=== PATIENT | female | born 1995 | race Caucasian/White ===

== ENCOUNTER → 2023-05-16 09:13 | Outpatient (BNVA) | payer MEDICAID, SELFPAY | PROVIDERS: PCP Nurse Practitioner Family; Visit Provider Internal Medicine Rheumatology | DX: M32.14 Glomerular disease in systemic lupus erythematosus (principal); R06.2 Wheezing | CPT/HCPCS: 99202 ==

== ENCOUNTER 2023-06-27 08:54 | Outpatient (AMB) | payer MEDICAID, SELFPAY ==
[2023-06-27 09:13] VITALS: BP 116/74; PULSE 73; TEMP 36.5; O2SAT 97; BMI 47.5
--- NOTE | 2023-06-27 09:13 | MHC.OFFVIS ---
Intake Vital Signs 06/27/23 09:13 Height 5 ft 6 in Weight 294 lb 1.546 oz BMI 47.5 BP 116/74 Pulse 73 Pulse Source Pulse Oximeter Temp 97.7 F Temp Source Skin Pulse Oximetry (%) 97 Intake Visit Reasons: sle - Confirmed Intake Note: Pt seen today for SLE follow up. 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 Dr Matthews discontinued mycophenalate tablet and will start cytoxan therapy infusion 07/04/23 Batch Dumper Required: No Accompanied by: Self / Same As Patient Allergies minocycline Adverse Reaction (Unknown, Verified 06/27/23 09:23) Hives Medication List - Last Reconciled 06/27/23 by Silvano Kruse MD amlodipine 10 mg PO DAILY fluticasone propionate 110 mcg/actuation (Flovent HFA) 2 puffs inhalation BID hydroxychloroquine 200 mg PO BID labetalol 400 mg PO DAILY lorazepam 1 mg PO BID PRN PNV,calcium 96-fkkc-qpkff acid 27 mg iron- 1 mg ( Vitamins Plus Low Iron) 1 tab PO DAILY prednisone 10 mg PO DAILY Ventolin HFA 90 mcg/actuation (albuterol sulfate) 2 puffs PO QID NS HPI HPI Comments History of Present Illness Details The patient returns for evaluation of her SLE. At her last visit she was having wheezing, coughing and shortness of breath consistent with asthma. She was on prednisone and with the use of inhalers she says her breathing has improved. There is no more shortness of breath or chest pain. She also had a kidney biopsy done on May 04. It shows membranous nephropathy of lupus, class V. There was an estimate of 25% glomerulosclerosis. She has some pain in the lateral aspect of the left foot underneath the 5th MTP. Otherwise the joints have not been uncomfortable recently. She is down to 10 mg daily on the prednisone and remains on 200 mg b.i.d. hydroxychloroquine. She remains on mycophenolate but tells me on July 03 she is going to receive IV Cytoxan. It sounds like she is getting that every 2-3 weeks for about 6 doses for her lupus nephritis. She was told to stop the mycophenolate when the IV Cytoxan starts. There have been no oral ulcers or inflammatory skin rashes. She currently does not have an official place to live. She and her daughter a stay with her grandmother but the grandmother is in senior housing and is not supposed to be housing the patient. The patient has pursued social help and is on a wait list to get a better apartment. [facility] Medical History (Updated 06/27/23 @ 13:37 by Silvano Kruse MD) Chronic kidney disease Hypertension Hypervolemia SLE glomerulonephritis syndrome Surgical History History of surgery Hx of appendectomy Hx of gastric bypass Status post biopsy of kidney Family History Mother Diabetes Maternal Grandmother Heart disease Hypertension Kidney disease Social History Alcohol intake: current Alcohol intake frequency: does not drink Patient Tobacco Use Status: Former Tobacco user Review of Systems Const Details: Negative for appetite change, weight change, fever, chills, malaise and fatigue Eyes Details: Negative for vision change, dry eyes,headaches and dizziness ENT Details: Negative for hearing change, tinnitus, oral ulcer, nose bleeds and oral dryness. Card Details: She has bilateral ankle edema, more prominent on the right. Negative chest pain, palpitations and syncope Resp Details: Negative for SOB, cough and wheezing GI Details: Negative indigestion/heartburn, nausea, abdominal pain, bowel changes, diarrhea, constipation and bloody stool. Details: Negative for dysuria, hematuria, nocturia, decreased force/flow and genital discharge Skin/Breast Details: Negative for itching, rash, hives, Raynaud's symptoms, sun sensitivity, and skin cancer Neuro Details: Negative for epilepsy, palsy, stroke, changes in speech, tingling and weakness Psych Details: Negative for anxiety, depression and stress Endo Details: Negative for polyuria and polydypsia [place]ism[place]/Lymph Details: Negative for excessive bruising or bleeding. Physical Exam Vital Signs: Last Vital Signs Temp 97.7 F 06/27/23 09:13 Pulse 73 06/27/23 09:13 BP 116/74 06/27/23 09:13 Pulse Ox 97 06/27/23 09:13 BMI result Body Mass Index 47.5 APPEARANCE: Patient in no acute distress EYES no redness, pupils equal and reactive to light, eyelids normal EARS:? External ear normal, canal clear and tympanic membrane normal. NOSE/SINUS:? Airflow through both nares, no nasal discharge, no bleeding THROAT:? There are no oral lesions evident..? Oral mucosa moist, no thrush NECK:? There may be some thyromegaly.? No masses, no adenopathy, trachea midline. HEART:? Regulrar rhythm, S1-S2 heard, no murmurs, rubs or gallops. LUNG:? Clear to percussion; clear to auscultation. ABD:? Normal bowel sounds, no organomegaly, masses or tenderness. EXTREMITIES:? Trace ankle and pedal edema on the left and trace to 1+ ankle and pedal edema on the right. No evidence of Raynaud's findings today. Lateral to the 5th MTP of the left foot is a callus. This is tender and seems to reproduce her pain in her foot when I apply pressure. There is no adjacent signs of redness or induration to suggest infection. No breaks in the skin. No objective findings of Raynaud's disease in the hands. NEURO:? Oriented and alert x3.? No focal weakness.? Reflexes symmetric.? Gait normal. SKIN:? Some scarring punctate lesions below the chin.? None look red or tender.? She has the left 5th toe corn as noted above.? JOINT EXAM:? Some discomfort with range of motion in the lower back.? Peripheral joints have no swelling or tenderness. at the occiput, trapezius, second rib, lateral epicondyle, knees, greater trochanter and gluteal area bilaterally. ? Results Reviewed Results Reviewed: 06/13/2023 lab work from [facility]: Creatinine 1.0, BUN 21, albumin 2.9, anti DNA greater than 300, urine protein creatinine ratio 245.4 Assessment & Plan Assessment & Plan (1) [place] of foot: Code(s): L84 - Corns and callosities (2) longterm current use of immunosuppressive drug: Code(s): Z79.899 - Other correction (current) drug therapy (3) SLE glomerulonephritis syndrome: Comment: April 2023 kidney biopsy: Membranous nephritis from lupus, class V. 25%glomerulosclerosis. Treatment to be changed from mycophenolate to IV Cytoxan in June 2023 Code(s): M32.14 - Glomerular disease in systemic lupus erythematosus Plan The peripheral manifestations of her SLE seems to have subsided. She does not seem to have any findings today of pleuritis, pericarditis, synovitis, or inflammatory skin rash. She remains with peripheral edema likely due to the significant proteinuria from her renal lesion from lupus. I would concur with the plan to start her on IV Cytoxan. I reviewed with her that the previous treatment with mycophenolate was not effective at preventing the development of her kidney disease. We reviewed some of the side effects of cyclophosphamide including some likely had ovarian dysfunction which may interfere with fertility. She says she was not aware of that potential complication. She may need to talk to the doctor about that in the future. I told her however that she did not have too many choices left having failed the mycophenolate and being faced with a relatively severe renal lesion. For now she will stay with the 10 mg daily prednisone. 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 We will aim for follow-up in about 2 months. Orders: Referrals Podiatry Referral L84 - Corns and callosities, Z79.899 - Other correction (current) drug therapy Medications: New prednisone 10 mg PO DAILY 30 tabs 1RF M32.14 - Glomerular disease in systemic lupus erythematosus Coding Level of Care Code Est Pt Level 3 (63814) Diagnoses [place] of foot L84 longterm current use of immunosuppressive drug Z79.899 SLE glomerulonephritis syndrome M32.14
== END 2023-06-27 10:32 | disposition home or self-care (01) ==
PROVIDERS: PCP Physician Assistant; Visit Provider Internal Medicine Rheumatology
DX: L84 Corns and callosities (principal); Z79.899 Other long term (current) drug therapy; M32.14 Glomerular disease in systemic lupus erythematosus
CPT/HCPCS: 99213

== ENCOUNTER → 2023-06-27 08:54 | Outpatient (BNVA) | payer MEDICAID, SELFPAY | PROVIDERS: PCP Nurse Practitioner Family; Visit Provider Internal Medicine Rheumatology | DX: M32.14 Glomerular disease in systemic lupus erythematosus (principal); L84 Corns and callosities; Z98.84 Bariatric surgery status; Z79.899 Other long term (current) drug therapy | CPT/HCPCS: 99212 ==

== ENCOUNTER 2023-07-19 09:39 | Outpatient (AMB) | payer MEDICAID, SELFPAY ==
[2023-07-19 09:48] VITALS: BP 126/78; PULSE 69; O2SAT 98; BMI 49.6
--- NOTE | 2023-07-19 09:48 | MHC.OFFVIS ---
Intake Vital Signs 07/19/23 09:48 Height 5 ft 6 in Weight 307 lb 8.717 oz BMI 49.6 BP 126/78 Blood Pressure Location Lt brachial Position Sitting Pulse 69 Pulse Source Pulse Oximeter Pulse Oximetry (%) 98 Oxygen Delivery Method Room Air Intake Visit Reasons: wheezing Allergies minocycline Adverse Reaction (Unknown, Verified 07/19/23 09:52) Hives HPI wheezing HPI Details 27-year-old lady, nonsmoker, with underlying lupus including lupus nephritis now on hydroxychloroquine, cyclophosphamide, and prednisone 10 mg daily, previously on mycophenolate. Patient with recent history of left-sided pleural effusion requiring drainage at [facility] patient has been prescribed diuretics, but currently she is not taking any. Also, unclear if patient has underlying history of deep venous thrombosis and/or pulmonary emboli, records have been requested. She does complain of intermittent wheezing, previously on inhaled corticosteroid, recently stopped by her channel opener. She denies family history of lung disease. [facility] Medical History (Updated 07/19/23 @ 10:36 by Pranav Zepeda MD) Chronic kidney disease Hypertension Hypervolemia SLE glomerulonephritis syndrome Surgical History History of surgery Hx of appendectomy Hx of gastric bypass Status post biopsy of kidney Family History Mother Diabetes Maternal Grandmother Heart disease Hypertension Kidney disease Social History Alcohol intake: current Alcohol intake frequency: does not drink Patient Tobacco Use Status: Former Tobacco user Review of Systems Const Denies daytime sleepiness, Denies excessive sweating, Denies fatigue, Denies fever(s), Denies lethargy, Denies malaise, Denies night sweats, Denies snoring and Denies weight loss Eyes Denies blurry vision and Denies itchy eyes ENT Denies nasal congestion, Denies post nasal drip, Denies sinus pain, Denies sinus pressure and Denies other ( Thrush) Card Denies chest pain, Reports pedal edema, Denies dyspnea, Reports dyspnea on exertion, Denies orthopnea and Denies paroxysmal nocturnal dyspnea Resp Denies cough, Denies hemoptysis, Denies excessive phlegm production, Denies dyspnea, Reports dyspnea on exertion, Denies snoring and Denies wheezing GI Denies abdominal pain and Denies heartburn Musc Denies myalgias, Denies arthralgias and Denies joint swelling Skin/Breast Denies rash Neuro Denies memory loss and Denies seizure-like activity Psych Denies abnormal sleep pattern, Denies anxiety and Denies memory loss Endo Denies excessive sweating, Denies fatigue and Denies heat intolerance Bismark/Lymph Denies easy bruising Aller/Immun Denies itchy eyes, Denies seasonal rhinorrhea and Denies wheezing Physical Exam Vital Signs: Last Vital Signs Pulse 69 07/19/23 09:48 BP 126/78 07/19/23 09:48 Pulse Ox 98 07/19/23 09:48 Oxygen Delivery Method Room Air 07/19/23 09:48 BMI result Body Mass Index 49.6 Const General: no acute distress and alert Nutritional Appearance: obese Orientation/consciousness: Other orientation findings ( oriented) HEENT Head: Yes atraumatic Eyes General: appearance normal, both eyes and all related structures Sclerae: sclerae normal EOM: EOMs intact bilaterally Neck Neck: Yes supple Lymphatic: no lymphadenopathy noted Resp Effort & Inspection: normal respiratory effort and no use of accessory muscles Auscultation: clear to auscultation bilaterally Cardio Rate: regular rate Rhythm: regular rhythm Heart sounds: no gallops, no murmurs and no rubs Skin General skin exam: other ( warm) Extrem General: No clubbing, No cyanosis and Yes edema (1+ bilateral) Assessment & Plan Assessment & Plan (1) SLE (systemic lupus erythematosus related syndrome): Code(s): M32.9 - Systemic lupus erythematosus, unspecified Plan: Lupus with lupus nephritis currently on cyclophosphamide, Plaquenil, and prednisone 10 mg daily. Appears to have a component of fluid retention with possible pulmonary edema/effusions. Will obtain pulmonary function test for further evaluation. (2) Pleural effusion: Code(s): J90 - Pleural effusion, not elsewhere classified (3) ILD (interstitial lung disease): Code(s): J84.9 - Interstitial pulmonary disease, unspecified Plan: Likely SLE related ILD. Will obtain CT chest for further evaluation. Orders: Orders CT chest wo IV con Today J84.9 - Interstitial pulmonary disease, unspecified Coding Level of Care Code New Pt Level 4 (31812) Diagnoses SLE (systemic lupus erythematosus related syndrome) M32.9 Pleural effusion J90 ILD (interstitial lung disease) J84.9
== END 2023-07-19 10:10 | disposition home or self-care (01) ==
PROVIDERS: PCP Physician Assistant; Visit Provider Internal Medicine Pulmonary Disease
DX: M32.9 Systemic lupus erythematosus, unspecified (principal); J90 Pleural effusion, not elsewhere classified; J84.9 Interstitial pulmonary disease, unspecified
CPT/HCPCS: 99204

== ENCOUNTER → 2023-07-19 09:39 | Outpatient (BNVA) | payer MEDICAID, SELFPAY | PROVIDERS: PCP Physician Assistant; Visit Provider Internal Medicine Pulmonary Disease | DX: M32.9 Systemic lupus erythematosus, unspecified (principal); J90 Pleural effusion, not elsewhere classified; J84.9 Interstitial pulmonary disease, unspecified | CPT/HCPCS: 99202 ==

== ENCOUNTER 2023-11-28 09:11 | Outpatient (AMB) | payer MEDICAID, SELFPAY ==
[2023-11-28 09:38] VITALS: BP 140/88; PULSE 68; TEMP 36.6; O2SAT 98; BMI 48.5
--- NOTE | 2023-11-28 09:38 | MHC.OFFVIS ---
Intake Vital Signs 11/28/23 09:38 Height 5 ft 6 in Weight 300 lb 4.313 oz BMI 48.5 BP 140/88 H Blood Pressure Location Rt brachial Position Sitting Pulse 68 Pulse Source Pulse Oximeter Temp 97.9 F Temp Source Skin Pulse Oximetry (%) 98 Intake Visit Reasons: SLE Intake Note: Pt presents today for SLE follow up, last seen by Dr Kruse in June 2023. She reports she was seen at [facility] and [facility] in the last 2 week for difficultly breathing. C/o excessive muscle pain and prednsione is not helping. She is wondering about alternatives, she looked up Benlysta.. she states her joint pain is worse with bad weather. Senior Payroll Administrator Required: No Accompanied by: Self / Same As Patient Allergies minocycline Adverse Reaction (Unknown, Verified 11/28/23 09:46) Hives Bactrim Allergy (Severe, Uncoded 11/28/23 09:46) Shortness of Breath Medication List - Last Reconciled 11/28/23 by Bradly Valenzuela MD amlodipine 10 mg PO DAILY hydroxychloroquine 200 mg PO BID labetalol 400 mg PO DAILY lorazepam 1 mg PO BID PRN mycophenolate mofetil 500 mg PO BID mycophenolate mofetil 500 mg PO BID PNV,calcium 29-iojj-ktzkc acid 27 mg iron- 1 mg ( Vitamins Plus Low Iron) 1 tab PO DAILY prednisone 10 mg PO DAILY HPI HPI Comments History of Present Illness Details 28-year-old female with SLE returns for follow-up. She completed IV Cytoxan treatment back in August. According to patient it was a an every other week treatment, 6 infusions in total. (likely Euro Lupus protocol) then switched back to her mycophenolate mofetil. About 10 days ago she presented to the hospital with cough, shortness of breath, difficulty breathing. She was found to have RSV pneumonia and discharged home. She states that her symptoms are much improved now. She is also on hydroxychloroquine. Currently her main complaint is diffuse joint pain, and stiffness including her wrists, knuckles, knees, ankles associated with 2 hours of morning stiffness, improved with lying in a home warm bath. He takes prednisone 10 mg daily and Tylenol 500 mg 3 times a day without much improvement. She has also noticed some ulcers on the inside of her mouth. No new rashes Most recent history by Dr. Kruse 06/2023: The patient returns for evaluation of her SLE. At her last visit she was having wheezing, coughing and shortness of breath consistent with asthma. She was on prednisone and with the use of inhalers she says her breathing has improved. There is no more shortness of breath or chest pain. She also had a kidney biopsy done on May 04. It shows membranous nephropathy of lupus, class V. There was an estimate of 25% glomerulosclerosis. She has some pain in the lateral aspect of the left foot underneath the 5th MTP. Otherwise the joints have not been uncomfortable recently. She is down to 10 mg daily on the prednisone and remains on 200 mg b.i.d. hydroxychloroquine. She remains on mycophenolate but tells me on July 03 she is going to receive IV Cytoxan. It sounds like she is getting that every 2-3 weeks for about 6 doses for her lupus nephritis. She was told to stop the mycophenolate when the IV Cytoxan starts. There have been no oral ulcers or inflammatory skin rashes. She currently does not have an official place to live. She and her daughter a stay with her grandmother but the grandmother is in senior housing and is not supposed to be housing the patient. The patient has pursued social help and is on a wait list to get a better apartment. [facility] Medical History Hypervolemia Hypertension SLE glomerulonephritis syndrome Chronic kidney disease Surgical History Status post biopsy of kidney History of surgery Hx of gastric bypass Hx of appendectomy Family History Mother Diabetes Maternal Grandmother Heart disease Hypertension Kidney disease Social History Alcohol intake: current Alcohol intake frequency: does not drink Patient Tobacco Use Status: Former Tobacco user Substance Use Type: Marijuana Review of Systems [facility] Reports back pain, Reports arthralgias and Reports stiffness Skin/Breast Denies rash Physical Exam Vital Signs: Last Vital Signs Temp 97.9 F 11/28/23 09:38 Pulse 68 11/28/23 09:38 BP 140/88 H 11/28/23 09:38 Pulse Ox 98 11/28/23 09:38 BMI result Body Mass Index 48.5 Const General: cooperative, healthy appearing and comfortable Nutritional Appearance: obese morbidly obese Orientation/consciousness: patient oriented x3 Limitations: no limitations HEENT Head: Yes normocephalic and Yes atraumatic Mouth: moist mucous membranes Resp Effort & Inspection: normal respiratory effort and able to speak in complete sentences Auscultation: clear to auscultation bilaterally Cardio Rate: regular rate Rhythm: regular rhythm GI Palpation (GI): Soft to palpation and nontender Skin Other: Old hyperpigmented scars on face Neuro General: patient oriented x3 Extrem Other: Bilateral wrist tenderness and pain with flexion and extension Bilateral diffuse MCP, PIP and PIP tenderness Bilateral elbow pain with flexion and extension Bilateral knee pain with flexion and extension Bilateral ankle tenderness Results Reviewed Results Reviewed: 06/13/2023 lab work from [facility]: Creatinine 1.0, BUN 21, albumin 2.9, anti DNA greater than 300, urine protein creatinine ratio 245.4 Labs 04/06/2023 C3 94 (90-180) C4 18 (10-40) DsDNA 263 (0-9) Creatinine 1.4 Proteinuria 0.86 as compared to 6.0 in August Assessment & Plan Assessment & Plan (1) SLE glomerulonephritis syndrome: Comment: Arthralgias, skin rashes, pleural effusions, membraneous nephritis, +++DsDNA +++Sm April 2023 kidney biopsy: Membranous nephritis from lupus, class V. 25%glomerulosclerosis. Treatment changed from mycophenolate to IV Cytoxan in June 2023 Code(s): M32.14 - Glomerular disease in systemic lupus erythematosus Plan: This is a 28-year-old female with SLE complicated by class V glomerulonephritis who presents for follow-up. This is her 1st visit with me. She completed IV Cytoxan treatment back in August of 2023, managed by [employer] (Dr. Yolanda Guaman) likely Euro lupus protocol. She is currently back on her mycophenolate 500 mg Twice daily. Labs showed improved proteinuria bought a mild bump in creatinine.. DsDNA improved. Upon evaluation today it looks like her main lupus manifestation is inflammatory arthritis. Check SLE disease activity labs. Increase prednisone to 20 mg daily. Follow-up in 3 weeks. 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 Will consider adding other DMARDs such as Benlysta (2) Long-term use of hydroxychloroquine: Code(s): Z79.899 - Other residential (current) drug therapy Plan: Referred to Ophthalmology Plan I spent 47 minutes reviewing patient's chart, evaluating patient, ordering diagnostic workup, counseling patient and documenting in the chart Orders: Orders Protein Creatinine Ratio, Ur Today M32.14 - Glomerular disease in systemic lupus erythematosus, M32.9 - Systemic lupus erythematosus, unspecified C Reactive Protein Today M32.14 - Glomerular disease in systemic lupus erythematosus, M32.9 - Systemic lupus erythematosus, unspecified Comprehensive Met. Panel Today M32.14 - Glomerular disease in systemic lupus erythematosus, M32.9 - Systemic lupus erythematosus, unspecified Anti Extractable Nuclear Ag Today M32.14 - Glomerular disease in systemic lupus erythematosus, M32.9 - Systemic lupus erythematosus, unspecified Anti DNA DS Antibody Today M32.14 - Glomerular disease in systemic lupus erythematosus, M32.9 - Systemic lupus erythematosus, unspecified Complement C3 Today M32.14 - Glomerular disease in systemic lupus erythematosus, M32.9 - Systemic lupus erythematosus, unspecified Complement C4 Today M32.14 - Glomerular disease in systemic lupus erythematosus, M32.9 - Systemic lupus erythematosus, unspecified Erythrocyte Sedimentation Rate Today M32.14 - Glomerular disease in systemic lupus erythematosus, M32.9 - Systemic lupus erythematosus, unspecified UA w Microscopic Today M32.14 - Glomerular disease in systemic lupus erythematosus, M32.9 - Systemic lupus erythematosus, unspecified Sjogren's Antibodies Today M32.14 - Glomerular disease in systemic lupus erythematosus, M32.9 - Systemic lupus erythematosus, unspecified Lupus Anticoagulant Panel Today M32.14 - Glomerular disease in systemic lupus erythematosus, M32.9 - Systemic lupus erythematosus, unspecified Complete Blood Count Auto Diff Today M32.14 - Glomerular disease in systemic lupus erythematosus, M32.9 - Systemic lupus erythematosus, unspecified Hepatitis A,B,C Profile Today Z11.59 - Encounter for screening for other viral diseases T Spot TB Today Z11.7 - Encounter for testing for latent tuberculosis infection Beta-2 Glycoprotein Antibody Today R76.0 - Raised antibody titer Cardiolipin Antibodies Today R76.0 - Raised antibody titer Referrals Ophthalmology Referral Z79.899 - Other salvage determiner (current) drug therapy Medications: New PNV,calcium 45-mrfv-zzouk acid 27 mg iron- 1 mg ( Vitamins Plus Low Iron) 1 tab PO DAILY 90 tabs 1RF Changed From prednisone 10 mg PO DAILY 30 tabs 1RF M32.14 - Glomerular disease in systemic lupus erythematosus To prednisone 20 mg (2 x 10 mg) PO DAILY 42 tabs 0RF M32.14 - Glomerular disease in systemic lupus erythematosus Coding Level of Care Code Est Pt Level 5 (04904) Diagnoses SLE glomerulonephritis syndrome M32.14 Long-term use of hydroxychloroquine Z79.899
== END 2023-11-28 10:22 | disposition home or self-care (01) ==
PROVIDERS: PCP Physician Assistant; Referring Provider Physician Assistant; Visit Provider Student in an Organized Health Care Education/Training Program
DX: M32.14 Glomerular disease in systemic lupus erythematosus (principal); Z79.899 Other long term (current) drug therapy
CPT/HCPCS: 99215

== ENCOUNTER 2023-11-28 09:11 | Outpatient (REF) | payer MEDICAID, SELFPAY ==
[2023-11-28 11:26] LABS: MANUAL DIFF FLAG NO
[2023-11-28 12:24] LABS: Basophils Percent Auto 0.6 % (0-2); Eosinophils Absolute Auto 0.2 X10*3/uL (0.0-0.4); Eosinophils Percent Auto 2.9 % (0-4); Hematocrit 37.3 % (37.0-47.0); Hemoglobin 12.3 g/dl (12.0-16.0); Imm Gran Abs Auto 0.05 X10*3/uL (0.00-0.03); Lymphocytes Absolute Auto 1.2 X10*3/uL (1.2-4.9); Lymphocytes Percent Auto 22.1 % (20-40); Mean Corpuscular Volume 81.8 fL (80.0-98.0); Mean Platelet Volume 11.7 fL (9.4-12.3); Monocytes Absolute Auto 0.3 X10*3/uL (0.1-1.2); Monocytes Percent Auto 5.7 % (2-11); Neutrophils Absolute Auto 3.6 x10*3/uL (2.0-8.3); Neutrophils Percent Auto 67.7 % (45-73); Platelet Count 211 X10*3/uL (160-400); Red Blood Count 4.56 X10*6/uL (4.20-5.50); Red Cell Distribution Width 14.1 % (11.0-16.0); White Blood Count 5.3 X10*3/uL (4.8-10.8)
[2023-11-28 12:50] LABS: Alanine Aminotransferase 16 U/L (0-31); Albumin Level 2.7 g/dL (3.5-5.0); Alkaline Phosphatase 82 U/L (39-117); Anion Gap 10 (12-20); Aspartate Amino Transferase 23 U/L (5-31); Bilirubin Total 0.2 mg/dL (0.0-1.0); Blood Urea Nitrogen 21 mg/dL (9-16); C Reactive Protein 1.41 mg/dL (< or = 0.50); Calcium 8.3 mg/dL (8.4-10.2); Carbon Dioxide 18 mmol/L (22-29); Chloride 116 mmol/L (96-108); Estimated Glomerular Filt Rate > 60; Glucose Random 82 mg/dL (60-115); Potassium 3.5 mmol/L (3.3-5.1); Sodium 140 mmol/L (135-145); Total Protein 6.3 g/dL (6.5-8.0)
[2023-12-03 17:13] LABS: Cardiolipin IgG Ab 13.9 GPL-U/mL; Cardiolipin IgM Ab 4.6 MPL-U/mL
[2023-12-06 15:38] LABS: Beta-2 Glycoprotein IgA 27.6 U/mL (<20.0); Beta-2 Glycoprotein IgM 5.5 U/mL (<20.0)
[2023-12-08 07:09] LABS: Anti DNA DS Antibody 1816 IU/mL; Antibody to SS-A Antigen >8.0 POS AI (<1.0 NEG); Antibody to SS-B Antigen 6.6 POS AI (<1.0 NEG); SM/Ribonucleoprotein Ab 1.5 POS AI (<1.0 NEG); Smith Protein 2.6 POS AI (<1.0 NEG)
== END 2023-11-28 09:12 | disposition home or self-care (01) ==
LOC: HO.LAB 09:11
PROVIDERS: PCP Physician Assistant; Visit Provider Student in an Organized Health Care Education/Training Program
DX: M32.14 Glomerular disease in systemic lupus erythematosus (principal); R76.0 Raised antibody titer; M32.9 Systemic lupus erythematosus, unspecified; Z11.59 Encounter for screening for other viral diseases; Z11.7 Encounter for testing for latent tuberculosis infection; Z79.899 Other long term (current) drug therapy
CPT/HCPCS: 36415; 80053; 81001; 82570; 84156; 85025; 85597; 85598; 85613; 85652; 85730; 86140; 86146; 86147; 86160; 86225; 86235; 86481; 86704; 86706; 86709; 86803; 87340; 99212

== ENCOUNTER 2024-01-28 12:56 | Outpatient (REF) | payer OTHER, SELFPAY ==
[2024-01-28 13:00] VITALS: BP 102/66; PULSE 57; RESP 17; TEMP 36.4; O2SAT 99; BMI 47.0
[2024-01-28] MEDS: methylPREDNISolone Sod Succ 40 MG/ML VIAL 25 MG IVPUSH (15:10)
[2024-01-28] MEDS: diphenhydrAMINE HCL 25 MG TABLET PO (15:10)
[2024-01-28] MEDS: Acetaminophen 325 MG TABLET 650 MG PO (15:10)
== END 2024-01-28 12:57 | disposition home or self-care (01) ==
LOC: HO.MDS 12:56
PROVIDERS: Visit Provider Student in an Organized Health Care Education/Training Program
DX: M32.14 Glomerular disease in systemic lupus erythematosus (principal)
CPT/HCPCS: 96365; 96375; J0490; J2920

== ENCOUNTER 2024-02-20 13:23 | Outpatient (AMB) | payer OTHER, SELFPAY ==
[2024-02-20 13:34] VITALS: BP 134/70; PULSE 81; O2SAT 99; BMI 48.9
--- NOTE | 2024-02-20 13:34 | MHC.OFFVIS ---
Intake Vital Signs 02/20/24 13:34 Height 5 ft 7 in Weight 312 lb 6.32 oz BMI 48.9 BP 134/70 Blood Pressure Location Lt brachial Position Sitting Pulse 81 Pulse Source Pulse Oximeter Pulse Oximetry (%) 99 Intake Visit Reasons: SLE/CONFIRMED Intake Note: Pt presents today for follow up after being [place] in [facility] [place] pneumoia, DVT, lupus flare up; mentions she had chemo and multiple procedures. 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 Required: No Accompanied by: Child Allergies minocycline Adverse Reaction (Unknown, Verified 02/20/24 13:38) Hives Bactrim Allergy (Severe, Uncoded 02/20/24 13:38) Shortness of Breath Medication List - Last Reconciled 02/20/24 by Bradly Valenzuela MD amlodipine 10 mg PO DAILY apixaban (Eliquis) 5 mg PO BID furosemide 80 mg PO BID hydroxychloroquine 200 mg PO BID labetalol 400 mg PO DAILY lorazepam 1 mg PO BID PRN medroxyprogesterone mg PO metolazone mg PO PNV,calcium 60-bhes-zqemy acid 27 mg iron- 1 mg ( Vitamins Plus Low Iron) 1 tab PO DAILY prednisone 60 mg PO DAILY HPI HPI Comments History of Present Illness Details 28-year-old female with SLE returns for follow-up. She stated that she was admitted to [facility] for 2-3 weeks. Records not available to me but according to patient, sHe was found to have left lower extremity DVT and PE, she received heparin and transitioned to Eliquis. She also states that she had a superior vena cava filter, she had a kidney biopsy complicated by bleeding, her hemoglobin was 6, she received blood transfusions. She stated that her kidney biopsy showed a lupus nephritis flare and she received cyclophosphamide in the hospital and started on prednisone 60 mg daily. She is planned for 5 more doses of cyclophosphamide every 2 weeks. CellCept discontinued. She has been complaining of oral ulcers. Most recent history by Dr. Kruse 06/2023: The patient returns for evaluation of her SLE. At her last visit she was having wheezing, coughing and shortness of breath consistent with asthma. She was on prednisone and with the use of inhalers she says her breathing has improved. There is no more shortness of breath or chest pain. She also had a kidney biopsy done on May 04. It shows membranous nephropathy of lupus, class V. There was an estimate of 25% glomerulosclerosis. She has some pain in the lateral aspect of the left foot underneath the 5th MTP. Otherwise the joints have not been uncomfortable recently. She is down to 10 mg daily on the prednisone and remains on 200 mg b.i.d. hydroxychloroquine. She remains on mycophenolate but tells me on July 03 she is going to receive IV Cytoxan. It sounds like she is getting that every 2-3 weeks for about 6 doses for her lupus nephritis. She was told to stop the mycophenolate when the IV Cytoxan starts. There have been no oral ulcers or inflammatory skin rashes. She currently does not have an official place to live. She and her daughter a stay with her grandmother but the grandmother is in senior housing and is not supposed to be housing the patient. The patient has pursued social help and is on a wait list to get a better apartment. [facility] Medical History (Updated 02/20/24 @ 14:09 by Bradly Valenzuela MD) Pulmonary embolism DVT (deep venous thrombosis) Hypervolemia Hypertension SLE glomerulonephritis syndrome Chronic kidney disease Surgical History Status post biopsy of kidney History of surgery Hx of gastric bypass Hx of appendectomy Family History Mother Diabetes Maternal Grandmother Heart disease Hypertension Kidney disease Social History Alcohol intake: current Alcohol intake frequency: does not drink Patient Tobacco Use Status: Former Tobacco user Substance Use Type: Marijuana Review of Systems ENT Details: Oral ulcers Musc Denies arthralgias Skin/Breast Reports unusual bruising Physical Exam Vital Signs: Last Vital Signs Pulse 81 02/20/24 13:34 BP 134/70 02/20/24 13:34 Pulse Ox 99 02/20/24 13:34 BMI result Body Mass Index 48.9 Const Other: Generalized puffiness General: cooperative, healthy appearing and comfortable Nutritional Appearance: obese morbidly obese Orientation/consciousness: patient oriented x3 Limitations: no limitations HEENT Head: Yes normocephalic and Yes atraumatic Mouth: moist mucous membranes Resp Effort & Inspection: normal respiratory effort and able to speak in complete sentences Auscultation: clear to auscultation bilaterally Cardio Rate: regular rate Rhythm: regular rhythm GI Palpation (GI): Soft to palpation and nontender Skin Other: Old hyperpigmented scars on face Few areas of superficial bruising on right flank (site of kidney biopsy) you superficial bruises on hands and forearms Neuro General: patient oriented x3 Extrem Other: Bilateral lower extremity calf swelling as well as pitting edema, more prominent on the left Results Reviewed Results Reviewed: 06/13/2023 lab work from [facility]: Creatinine 1.0, BUN 21, albumin 2.9, anti DNA greater than 300, urine protein creatinine ratio 245.4 Labs 04/06/2023 C3 94 (90-180) C4 18 (10-40) DsDNA 263 (0-9) Creatinine 1.4 Proteinuria 0.86 as compared to 6.0 in August Assessment & Plan Assessment & Plan (1) SLE glomerulonephritis syndrome: Comment: Arthralgias, skin rashes, pleural effusions, membraneous nephritis, +++DsDNA +++Sm April 2023 kidney biopsy: Membranous nephritis from lupus, class V. 25%glomerulosclerosis. Treatment changed from mycophenolate to IV Cytoxan in June 2023 Flare 01/2024 repeat kidney biopsy & Cytoxan 01/2024 Code(s): M32.14 - Glomerular disease in systemic lupus erythematosus Plan: This is a 28-year-old female with SLE complicated by class V glomerulonephritis who presents for follow-up. A few weeks ago patient was admitted to [facility], records not available to me, according to patient she was found to have DVT and PE and is now on Eliquis, also a superior vena cava filter was placed. She was evaluated by her Nephrology team and Kidney biopsy was done which showed a lupus nephritis flare and she received her 1st dose of Cytoxan at the hospital, she is planned for 5 more treatments every 2 weeks (likely you lupus protocol) She is currently on 60 mg of prednisone and CellCept was discontinued Patient received 1 dose of Benlysta on 01/27. Benlysta will be discontinued at this time Prescribed dexamethasone elix for her oral ulcers Currently the majority of her management is through her medical laboratory technicians. I will request records from [facility] Follow-up in 4 months (2) Long-term use of hydroxychloroquine: Code(s): Z79.899 - Other intermediate (current) drug therapy Plan: Follow-up regularly with Ophthalmology Plan I spent 27 minutes reviewing patient's chart, evaluating patient, counseling patient and documenting in the chart Medications: New dexamethasone swish and spit twice daily as needed for oral ulcers 0.5 mg (5 mL) PO BID PRN 237 mL 0RF oral ulcer Coding Level of Care Code Est Pt Level 4 (43346) Diagnoses SLE glomerulonephritis syndrome M32.14 Long-term use of hydroxychloroquine Z79.899
== END 2024-02-20 14:00 | disposition home or self-care (01) ==
PROVIDERS: PCP Physician Assistant; Visit Provider Student in an Organized Health Care Education/Training Program
DX: M32.14 Glomerular disease in systemic lupus erythematosus (principal); Z79.899 Other long term (current) drug therapy
CPT/HCPCS: 99214

== ENCOUNTER → 2024-02-20 13:23 | Outpatient (BNVA) | payer OTHER, SELFPAY | PROVIDERS: PCP Physician Assistant; Visit Provider Student in an Organized Health Care Education/Training Program | DX: M32.14 Glomerular disease in systemic lupus erythematosus (principal); Z79.899 Other long term (current) drug therapy | CPT/HCPCS: 99212 ==